=== PATIENT | female | born 1995 | race Caucasian/White ===

== ENCOUNTER 2017-02-13 05:20 | Emergency (ER) | payer OTHER ==
[~2017-02-13] VITALS: Ht 157.5 cm; Wt 73.9 kg
[2017-02-13 05:46] VITALS: BP 133/72
--- NOTE | 2017-02-13 06:10 | NUR ---
TO ER BED 7
--- NOTE | 2017-02-13 06:10 | NUR ---
PLACED IN BED 7. HERE FOR GENERALIZD PRURITIC,ERYTHEMATOUS MACULAR RASHES WHICH STARTED ON MAONDAY. WAS SEEN AT AN URGENT CARE AND WAS GIVEN STEROID SHOT AND HAS BEEN TAKING BENADRYL PO AFFORDING TEMPORARY RELIEF. PERSISTENCE OF SYMPTOMS PROMPTED CONSULT.
--- NOTE | 2017-02-13 06:25 | NUR ---
MD CAME AT BEDSIDE TO EVALUATE PT.
--- NOTE | 2017-02-13 06:35 | NUR ---
BLOOD DRAWN BY BIOMETRICS ANALYST.
--- NOTE | 2017-02-13 06:40 | NUR ---
URINE HCG AND DIPSTICK DONE. RESULT NOTED BY
[2017-02-13 06:44] LABS: BASOPHILS # (AUTO) 0.2 K/uL (0.00-0.22); EOSINOPHILS # (AUTO) 0.1 K/uL (0-0.4); EOSINOPHILS % (AUTO) 1.5 % (0.0-4.0); LYMPHOCYTES # (AUTO) 0.7 K/uL (2.5-16.5); LYMPHOCYTES % (AUTO) 8.5 % (20.5-51.1); MEAN CORPUSCULAR HEMOGLOBIN 29 pg (27-31); MEAN CORPUSCULAR HGB CONC 34 g/dL (33-37); MEAN CORPUSCULAR VOLUME 85 fL (80-94); MONOCYTES # (AUTO) 0.2 K/uL (0.8-1.0); MONOCYTES % (AUTO) 2.4 % (1.7-9.3); NEUTROPHILS # (AUTO) 7.3 K/uL (1.8-7.7); NEUTROPHILS % (AUTO) 85.6 % (42.2-75.2); PLATELET COUNT (AUTO) 226 K/uL (140-450); RED BLOOD CELL COUNT(AUTO) 4.84 MIL/uL (4.20-5.40); RED CELL DISTRIBUTION WIDTH 12.1 % (11.6-13.7); WHITE BLOOD COUNT (AUTO) 8.5 K/uL (4.8-10.8)
[2017-02-13] MEDS ORDERED: methylPREDNISolone SS 125 MG in WATER STERILE 2 ML IV ONE (06:50)
[2017-02-13] MEDS ORDERED: NACL 0.9% 1,000 ML IV ONE (06:50)
[2017-02-13 06:56] LABS: ANION GAP 12.5 (8-16); CALCIUM 8.8 mg/dL (8.5-10.1); CARBON DIOXIDE 26.3 mmol/L (21-32); CREATININE 0.6 mg/dL (0.6-1.3); POTASSIUM 3.8 mmol/L (3.5-5.1)
[2017-02-13 07:02] LABS: ALBUMIN 3.5 g/dL (3.4-5.0); TOTAL BILIRUBIN 0.6 mg/dL (0.0-1.0); TOTAL PROTEIN, SERUM 7.2 g/dL (6.4-8.2)
--- NOTE | 2017-02-13 07:04 | NUR ---
GAUGE 20 IV LINE ESTABLISHED TO THE RIGHT WRIST. NS 1 LITER AT 100 ML/HR AND SOLUMEDROL 125 MG IVP GIVEN ORDERED.
[2017-02-13 07:08] LABS: PARTIAL THROMBOPLASTIN TIME 29.7 secs (22-35.6); PROTHROMBIN TIME 9.8 secs (10.8-13.4)
--- NOTE | 2017-02-13 07:10 | NUR ---
ENDORSED CARE TO PATRICIA NICHOLS
--- NOTE | 2017-02-13 07:14 | NUR ---
Pt found lying supine with IV fluids running. IV site, patent, no swelling, no signs of infiltration. All needs met.
[2017-02-13] MEDS ORDERED: diphenhydrAMINE 50 MG/ML VIAL IVP ONE (07:15)
[2017-02-13] MEDS ORDERED: FAMOTIDINE 20 MG/2 ML VIAL IVP ONE (07:15)
--- NOTE | 2017-02-13 07:20 | NUR ---
Dr. Whyte evaluating patient at bedside.
--- NOTE | 2017-02-13 07:33 | NUR ---
MEDICATION ADMINISTERED ORDERED.
--- NOTE | 2017-02-13 07:58 | NUR ---
IV removed, catheter intact and site benign. Applied folded 4x4 gauze and tape to stop bleeding.
--- NOTE | 2017-02-13 08:00 | NUR ---
Patient discharged with v/s stable. Written and verbal after care instructions given and explained. Patient alert, oriented and verbalized understanding of instructions. Ambulatory with steady gait. All questions addressed prior to discharge. ID band removed. Patient advised to follow up with PMD. Rx of PEPCID, EPI-PEN, AND BENADRYL given. Patient educated on indication of medication including possible reaction and side effects. Opportunity to ask questions provided and answered.
[2017-02-13 08:03] VITALS: BP 115/67
== END 2017-02-13 08:00 | disposition home or self-care (01) ==
LOC: MED 05:20
DX: T78.40XA Allergy, unspecified, initial encounter (principal); L50.9 Urticaria, unspecified; X58.XXXA Exposure to other specified factors, initial encounter; Z88.6 Allergy status to analgesic agent
CPT/HCPCS: 36415; 80053; 81002; 81025; 85025; 85610; 85730; 96361; 96374; 96375; 99284; J1200; J2930; J3490; J7030